=== PATIENT | male | born 1970 | race Asian ===

== ENCOUNTER 2018-07-18 11:42 | Emergency (ER) | payer OTHER ==
[2018-07-18 11:48] VITALS: BP 133/100
--- NOTE | 2018-07-18 12:35 | EDPHY ---
H & P Time Seen by Provider: 07/18/18 12:21 HPI/ROS: CHIEF COMPLAINT: Ozone right middle digit HISTORY OF PRESENT ILLNESS: 48-year-old male with out-of-date tetanus was fly fishing this morning got a hook into his right middle digit distal phalanx, unable to remove it himself. PRIMARY CARE PROVIDER: REVIEW OF SYSTEMS: 10 systems reviewed and are negative with exception of illness mentioned in the history of present illness PHYSICAL EXAM (Prior to examination, patient consented to physical exam, hands were washed and my usual and customary physical exam procedures followed) 1) GENERAL: Well-developed, well-nourished, alert and oriented. Appears to be in no acute distress. 2) HEAD: Normocephalic 3) HEENT: sclera anicteric 4) LUNGS: Breathing comfortably. 5) SKIN: Right middle digit distal phalanx radial aspect parachute chandler fly w / hook in place. No signs of infection. Negative kanavel. Smoking Status: Former smoker Constitutional: Initial Vital Signs Temperature (C) 36.6 C 07/18/18 11:45 Heart Rate 82 07/18/18 11:45 Respiratory Rate 18 07/18/18 11:45 Blood Pressure 133/100 H 07/18/18 11:45 O2 Sat (%) 98 07/18/18 11:45 O2 Delivery Mode Room Air Allergies/Adverse Reactions: No Known Allergies Allergy (Unverified 07/18/18 11:45) Home Medications: Medication Instructions Recorded Cephalexin [Keflex] 500 mg PO TID 5 Days cap 07/18/18 MDM/Departure - MDM Procedures: Procedure: Ozone removal Indications risks benefits discussed with patient and he provided verbal consent. 1% plain lidocaine injected at the fish oxide after cleaning the skin with an alcohol and chlorhexidine. Using string technique out able to easily remove the hook. All components of the hook in place. The patient then copiously irrigated the area. The ED Course/Re-evaluation: Patient's tetanus has been updated. Given usual and customary wound precautions instructions. I am starting the patient on prophylactic Keflex or for fresh water borne pathogen coverage. I saw this patient independently based on established practice protocols. Care of patient under supervision of secondary supervising physician Dr Velasquez . - Depart Disposition: Home, Routine, Self-Care Clinical Impression: Fish hook injury of finger Qualifiers: Encounter type: initial encounter Laterality: right Qualified Code(s): S69.91XA - Unspecified injury of right wrist, hand and finger(s), initial encounter Condition: Good Instructions: Soft Tissue Foreign Body (ED) Additional Instructions: Return to the ER if you develop redness, swelling, discharge, warmth to the wound, red streaks going up your arm, or any other symptoms that concern you. Prescriptions: Cephalexin [Keflex] 500 mg PO TID 5 Days cap Referrals: Joaquin Medina MD [Medical Doctor] - 3-4 days, if not improved
[2018-07-18] MEDS ORDERED: TDAP ADULT 0.5 ML INJ (BOOSTRIX) IM ONE (12:37)
== END 2018-07-18 13:05 | disposition home or self-care (01) ==
DX: S60.452A Superficial foreign body of right middle finger, initial encounter (principal); Z23 Encounter for immunization; Y93.89 Activity, other specified; Y92.89 Other specified places as the place of occurrence of the external cause; Y99.9 Unspecified external cause status